=== PATIENT | female | born 1950 | race Caucasian/White ===

== ENCOUNTER 2020-09-19 10:10 | Outpatient (CLI) | payer OTHER, SELFPAY ==
[2020-09-19 10:54] VITALS: BP 126/78; PULSE 62; RESP 18; TEMP 36.6; O2SAT 100
--- NOTE | 2020-09-19 11:43 | DI.RAD_ITS ---
EXAM: XR PAIN CLINIC LUMBAR SP 2V CLINICAL HISTORY: Dx:Lumbar Spondylosis TECHNIQUE: 2D and realtime digital imaging was performed. CONTRAST MATERIAL: Refer to procedure report. COMPARISON: No exams were available for comparison FINDINGS: Fluoroscopy was provided for Dr. Gee during the performance of a lumbar medial branch block. Boyd barrett refer to the procedure report for complete details. Fluoro time: 56.9 seconds IMPRESSION:
[2020-09-19 11:47] VITALS: BP 147/70; PULSE 74; RESP 12; O2SAT 100
[2020-09-19] MEDS: Omnipaque 240 MG/ML 50 ML BTL IJ (11:47)
[2020-09-19] MEDS: Bupivacaine 0.5% Pres-Free 10 ML VIAL IJ (11:48)
--- NOTE | 2020-09-19 13:55 | PDOC.PAIN ---
Pain Clinic Procedure Note Procedure Note Procedure Note: Date of service: 09/19/20 Lumbar/Sacral Medial Branch Blocks JESSICA GUALLPA has been referred to the [facility] for lumbar/sacral medial branch blocks. COMMENTS: She was evaluated in our pain management clinic on 08/16/20 by Ms. De La Cruz. DX: Lumbosacral spondylosis without myelopathy Patient was interviewed and the medical record reviewed. There were no medical, pharmacologic, radiographic or other structural contraindications to attempting fluoroscopically guided local anesthetic lumbar/sacral medial branch blocks. Risks and expected side effects as well as potential benefit of the procedure were reviewed and voiced concerns addressed. The printed consent form was signed and witnessed. Standard time-out procedure was performed. Patient was placed in the prone position on the fluoroscopy table and automated blood pressure cuff and pulse oximeter applied. The skin entry points for approaching the anatomic target points of the segmental medial branches of bilateral L3-L5DR were identified with anfluoroscopy and marked. Following thorough Chlorhexadine preparation of the skin and draping, a 25 gauge 3.5 spinal needle was placed under fluoroscopic guidance down on to the target point for each respective segmental medial branch.Position was confirmed in A/P, oblique and lateral views with 0.25ml of omnipaque 240. At this point 0.5ml 0.5% Bupivacaine was injected at each segmental sensory nerve. Vital signs were stable throughout the procedure and were as recorded in the docflowsheet by the nursing staff. Follow up plans and appointments were discussed and was instructed to keep careful note of how the usual pain was modified by these injections. Specifically was asked to keep a pain diary for the next 24 hours using a numeric pain scale of 0-10 and report these results at the follow-up visit. Post procedure instruction was given as documented in the nursing documentation and having met discharge criteria. Patient was discharged from the [facility] Management [facility]. Based on the medial branches blocked today, if the patient has adequate relief and we are able to proceed to radiofrequency ablation, the treatment should result in the denervation of the bilateral L4-L5 and L5-S1 FACET JOINTS. We would expect to denervate a total of 4 facets during the radiofrequency ablation. COMMENTS: She will call back with her 1-4 hour post-procedure pain scores Ernie Gee DO, MPH Pain Management CC: Dario Brower
== END 2020-09-19 10:30 ==
PROVIDERS: PCP Family Medicine; Visit Provider Preventive Medicine Occupational Medicine
DX: M47.817 Spondylosis without myelopathy or radiculopathy, lumbosacral region (principal)
CPT/HCPCS: 64493; 64494; 72100; Q9967

== ENCOUNTER 2020-10-04 08:33 | Outpatient (CLI) | payer OTHER, SELFPAY ==
--- NOTE | 2020-10-04 06:00 | DI.RAD_ITS ---
EXAM: XR PAIN CLINIC LUMBAR SP 2V CLINICAL HISTORY: Dx: Lumbar Spondylosis TECHNIQUE: 2D and realtime digital imaging was performed. CONTRAST MATERIAL: Refer to procedure report. COMPARISON: No exams were available for comparison FINDINGS: Fluoroscopy was provided for Dr. Gee during the performance of a lumbar medial branch block. Boyd barrett refer to the procedure report for complete details. Fluoro time: 56.8 seconds IMPRESSION:
[2020-10-04 08:42] VITALS: BP 148/79; PULSE 70; RESP 18; TEMP 37.1; O2SAT 100
--- NOTE | 2020-10-04 09:49 | PDOC.PAIN ---
Pain Clinic Procedure Note Procedure Note Procedure Note: Date of service: 10/04/20 Lumbar/Sacral Medial Branch Blocks JESSICA GUALLPA has been referred to the [facility] for lumbar/sacral medial branch blocks. COMMENTS: She did very well with her first LMBB with 0.5% Bupivacaine on 09/19/20 DX: Lumbosacral spondylosis without myelopathy Patient was interviewed and the medical record reviewed. There were no medical, pharmacologic, radiographic or other structural contraindications to attempting fluoroscopically guided local anesthetic lumbar/sacral medial branch blocks. Risks and expected side effects as well as potential benefit of the procedure were reviewed and voiced concerns addressed. The printed consent form was signed and witnessed. Standard time-out procedure was performed. Patient was placed in the prone position on the fluoroscopy table and automated blood pressure cuff and pulse oximeter applied. The skin entry points for approaching the anatomic target points of the segmental medial branches of bilateral L3-L5DR were identified with anfluoroscopy and marked. Following thorough Chlorhexadine preparation of the skin and draping, a 25 gauge 3.5 spinal needle was placed under fluoroscopic guidance down on to the target point for each respective segmental medial branch.Position was confirmed in A/P, oblique and lateral views with 0.25ml of omnipaque 240. As this point 0.5cc of 2% Lidocaine was injected at each sensory nerve. Vital signs were stable throughout the procedure and were as recorded in the docflowsheet by the nursing staff. Follow up plans and appointments were discussed and was instructed to keep careful note of how the usual pain was modified by these injections. Specifically was asked to keep a pain diary for the next 24 hours using a numeric pain scale of 0-10 and report these results at the follow-up visit. Post procedure instruction was given as documented in the nursing documentation and having met discharge criteria. Patient was discharged from the [facility] Management [facility]. Based on the medial branches blocked today, if the patient has adequate relief and we are able to proceed to radiofrequency ablation, the treatment should result in the denervation of the bilateral L4-L5 and L5-S1 FACET JOINTS. We would expect to denervate a total of 4 facets during the radiofrequency ablation. COMMENTS: She will call back with her 1-4 hour post-procedure pain scores. Ernie Gee DO, MPH Pain Management CC: Dario Brower
[2020-10-04] MEDS: Omnipaque 240 MG/ML 50 ML BTL IJ (09:50)
[2020-10-04] MEDS: Lidocaine 2% Pres-Free 5 ML VIAL IJ (09:50)
[2020-10-04 09:51] VITALS: BP 131/79; PULSE 72; RESP 14; O2SAT 97
== END 2020-10-04 08:34 | disposition home or self-care (01) ==
LOC: PC 08:34
PROVIDERS: PCP Family Medicine; Visit Provider Preventive Medicine Occupational Medicine
DX: M47.817 Spondylosis without myelopathy or radiculopathy, lumbosacral region (principal)
CPT/HCPCS: 64493; 64494; 72100; Q9967

== ENCOUNTER 2020-12-25 12:42 | Outpatient (CLI) | payer OTHER, SELFPAY ==
[2020-12-25 12:52] VITALS: BP 127/72; PULSE 67; RESP 16; TEMP 36.7
[2020-12-25] MEDS: Lactated Ringers 1,000 ML 80 ML IV (13:28)
[2020-12-25] MEDS: Midazolam 2 MG/2 ML VIAL IVP ×2 (13:28→13:45)
[2020-12-25] MEDS: fentaNYL 100 MCG/2 ML VIAL IVP ×3 (13:28→14:08)
[2020-12-25 14:27] VITALS: BP 150/74; PULSE 72; RESP 17; O2SAT 99
[2020-12-25] MEDS: Lidocaine 1% Pres-Free 30 ML VIAL IJ (14:27)
--- NOTE | 2020-12-25 14:30 | DI.RAD_ITS ---
EXAM: XR PAIN CLINIC LUMBAR SP 2V CLINICAL HISTORY: Dx: Lumbar Spondylosis TECHNIQUE: 2D and realtime digital imaging was performed. CONTRAST MATERIAL: Refer to procedure report. COMPARISON: No exams were available for comparison FINDINGS: Fluoroscopy was provided for Dr. Bolton during the performance of a lumbar radiofrequency ablation. Ple ase refer to the procedure report for complete details. Ka,r=26.24 mGy IMPRESSION:
[2020-12-25] MEDS: Lidocaine 2% Pres-Free 5 ML VIAL IJ (14:33)
[2020-12-25] MEDS: Bupivacaine 0.5% Pres-Free 10 ML VIAL IJ (14:33)
[2020-12-25] MEDS: methylPREDNISolone ACETATE 40 MG/ML VIAL IJ (14:34)
--- NOTE | 2020-12-25 14:53 | PDOC.PAIN ---
Pain Clinic Procedure Note Procedure Note Procedure Note: Bilateral Lumbar Radiofrequency with Coolief Machine PROCEDURE NOTE Date of Service: December 25, 2020 Patient: JESSICA GUALLPA Provider: Anselmo Bolton MD Pre Operative Diagnosis: lumbar spondylosis Post Operative Diagnosis: same as above Comment: patient responded well to previous bilateral lumbar medial branch nerv blocks. PROCEDURE: Radiofrequency Ablation of medial branches - bilateral L3, L4, L5-DR JESSICA GUALLPA was brought into the fluoroscopy suite and positioned into the prone position on the fluoroscopy table and allowed to adjust to a position of comfort. A grounding pad was placed on the left thigh. The lumbar region was widely prepped with a chloraprep solution, allowed to air dry and draped in standard sterile surgical fashion. Local anesthesia was provided by 20mL of 1% lidocaine delivered with a 25g needle. A 17g 100mm radiofrequency introducer needle was placed to the planned anatomic targets guided with intermittent fluoroscopy with a perpendicular approach to terminally place at the junction of the superior articular process and the transverse process of the bilateral L3, L4, L5-DR and the base of the sacral ala on the bilateral for the L5 medial branch nerve. S1 also added for additional benefits. The stylets were removed and radiofrequency probes with a 4mm active tip were then inserted. Needle tip position of the probes was verified in the AP, oblique, and lateral views. At each site, the medial branch nerve was stimulated at 2 Hz to a maximum 1-2 volts determined to finalize safe needle and electrode placement. The patient was awake and responsive during this portion of the procedure. Each target was anesthetized with 1mL of 2% lidocaine for anesthesia for lesioning and then each target was lesioned at 80 degrees Celsius for 2 minutes and 30 seconds. Tissue impedences were noted to be between 250 and 500 Ohms. Electrodes and needles were then removed and bandages placed over the needle placement sites, the patient then returned to the supine position on a stretcher and transported to the recovery room without hemodynamic, neurologic, or allergic reactions. Fluoroscopic images were printed for hard copy recording and digitally archived. POST PROCEDURE EVALUATION: IMPRESSION: 1. patient tolerated procedure fairly well on the right side, she reported discomfort with lesioning of the left side, no radiation down lower extremity 2. required 1.5mg of IV versed and 75mcg of IV Fentanyl for IV anxiolysis Follow up plans and appointments were discussed with the JESSICA . Post procedure instruction was given as documented in nursing documentation and having met discharge criteria, JESSICA was discharged from the Pain Management [facility]. COMMENTS: No complications. F/U with our office as needed. I personally performed this entire procedure. Her pre-procedure VAS pain level is 5/10 and post-procedure pain level remained at 5/10. Anselmo Bolton MD Attending Physician
== END 2020-12-25 12:43 | disposition home or self-care (01) ==
LOC: PC 12:42
PROVIDERS: PCP Family Medicine; Visit Provider Internal Medicine
DX: M47.816 Spondylosis without myelopathy or radiculopathy, lumbar region (principal)
CPT/HCPCS: 64635; 64636; 72100; J1030; J2250; J3010

== ENCOUNTER 2021-04-18 08:27 | Outpatient (CLI) | payer OTHER, SELFPAY ==
--- NOTE | 2021-04-18 06:00 | DI.RAD_ITS ---
Exam(s) XR PAIN CLINIC SACRIOILIAC 2V EXAM: XR PAIN CLINIC SACRIOILIAC 2V CLINICAL HISTORY: Dx: Sacroiliac Joint Dysfunction TECHNIQUE: 2D and realtime digital imaging was performed. Radiologist not present. CONTRAST MATERIAL: None. COMPARISON: No exams were available for comparison FINDINGS: Fluoroscopy was provided for pain management therapy. Please refer to procedure report or details. Left sacroiliac joint injection. Cumulative dose: Ka,r=7.57 mGy IMPRESSION: RADIATION DOSE DELIVERED:
[2021-04-18 08:40] VITALS: BP 119/70; PULSE 69; RESP 18; TEMP 36.7; O2SAT 99
--- NOTE | 2021-04-18 09:25 | PDOC.PAIN_ITS ---
Pain Clinic Procedure Note Procedure Note Procedure Note: INTRA-ARTICULAR SI JOINT INJECTION JESSICA GUALLPA has been referred to the [facility] for intra- articular SI joint injection. COMMENTS: Pre-operative pain VAS was 8/10. Dx: Sacroiliac joint dysfunction Patient was interviewed and the medical record reviewed. There were no medical, pharmacologic, radiographic or other structural contraindications to attempting fluoroscopically guided intra-articular SI joint injection. Risks and expected side effects as well as potential benefit of the procedure were reviewed and voiced concerns addressed. The printed consent form was signed and witnessed. Standard time-out procedure was performed. Patient was placed in the prone position on the fluoroscopy table and automated blood pressure cuff and pulse oximeter applied. The skin entry point for approaching left SI joint was identified under the most advantageous fluoroscopic view and marked. Following thorough Chlorhexadine preparation of the skin and draping and 1% lidocaine infiltration of the skin entry point and subcutaneous tissues, a 22 gauge spinal needle was placed under fluoroscopic guidance into left SI joint was identified under the most advantageous fluoroscopic view and marked. Intra-articular placement was confirmed by a clear arthrogram resulting from the injection of 0.25ml Omnipaque 240, 1ml 1% lidocaine, and 80mg Depomedrol were injected intra-articularily with an initial reproduction of a significant component of the usual pain. Vital signs were stable throughout the procedure and were as recorded in the docflowsheet by the nursing staff. If given, dosages of intravenous drugs for anxiolysis and analgesia were documented in MAR. Follow up plans and appointments were discussed with the patient. Post procedure instruction was given as documented in nursing documentation and having met discharge criteria, and was discharged from the [facility] Management Center. COMMENTS: Post-procedure pain VAS = 7/10 Ernie Gee DO, MPH Pain Management CC: Slim Israel
[2021-04-18 09:42] VITALS: BP 131/84; PULSE 71; RESP 18; O2SAT 99
[2021-04-18] MEDS: Omnipaque 240 MG/ML 50 ML BTL IJ (09:44)
[2021-04-18] MEDS: methylPREDNISolone ACETATE 80 MG/ML VIAL IJ (09:44)
== END 2021-04-18 08:28 | disposition home or self-care (01) ==
LOC: PC 08:27
PROVIDERS: PCP Internal Medicine; Visit Provider Preventive Medicine Occupational Medicine
DX: M53.3 Sacrococcygeal disorders, not elsewhere classified (principal)
CPT/HCPCS: 27096; 72200; J1040; Q9967

== ENCOUNTER 2021-06-06 02:34 | Outpatient (CLI) | payer MEDICARE, SELFPAY ==
--- NOTE | 2021-06-06 | DI.US_ITS ---
Exam(s) US PAIN CLINIC NEEDLE GUIDANCE EXAM: cervical myofascial pain syndrome, ultrasound guided trigger point jection COMPARISON: No exams were available for comparison TECHNIQUE: Ultrasound performed using standard protocol. FINDINGS: Sonography was provided for Dr. Gee during the performance of a ultrasound-guided trigger point inj ection. Please refer to the procedure report for complete details. DATA REPOSITORY:
--- NOTE | 2021-06-06 06:00 | DI.RAD_ITS ---
Exam(s) XR PAIN CLINIC SACRIOILIAC 2V EXAM: XR PAIN CLINIC SACRIOILIAC 2V CLINICAL HISTORY: Dx: Sacroiliac joint dysfunction TECHNIQUE: 2D and realtime digital imaging was performed. CONTRAST MATERIAL: Refer to procedure report. COMPARISON: No exams were available for comparison FINDINGS: Fluoroscopy was provided for Dr. Gee during the performance of a sacroiliac joint injection. Boyd barrett refer to the procedure report for complete details. Ka,r=6.84 mGy IMPRESSION:
[2021-06-06 08:47] VITALS: BP 121/78; PULSE 66; RESP 18; O2SAT 99
[2021-06-06 09:33] VITALS: PULSE 73; O2SAT 100
[2021-06-06] MEDS: Lidocaine 2% Pres-Free 5 ML VIAL IJ (09:47)
[2021-06-06] MEDS: Omnipaque 240 MG/ML 50 ML BTL IJ (09:47)
[2021-06-06] MEDS: methylPREDNISolone ACETATE 40 MG/ML VIAL IJ (09:48)
--- NOTE | 2021-06-06 09:50 | PDOC.PAIN_ITS ---
Pain Clinic Procedure Note Procedure Note Procedure Note: INTRA-ARTICULAR SI JOINT INJECTION JESSICA GUALLPA has been referred to the [facility] for intra- articular SI joint injection. COMMENTS: Pre-procedure pain VAS was 8/10. Dx: Sacroiliac joint dysfunction Patient was interviewed and the medical record reviewed. There were no medical, pharmacologic, radiographic or other structural contraindications to attempting fluoroscopically guided intra-articular SI joint injection. Risks and expected side effects as well as potential benefit of the procedure were reviewed and voiced concerns addressed. The printed consent form was signed and witnessed. Standard time-out procedure was performed. Patient was placed in the prone position on the fluoroscopy table and automated blood pressure cuff and pulse oximeter applied. The skin entry point for approaching left SI joint was identified under the most advantageous fluoroscopic view and marked. Following thorough Chlorhexadine preparation of the skin and draping and 1% lidocaine infiltration of the skin entry point and subcutaneous tissues, a 22 gauge 3.5 spinal needle was placed under fluoroscopic guidance into left SI joint was identified under the most advantageous fluoroscopic view and marked. Intra-articular placement was confirmed by a clear arthrogram resulting from the injection of 0.25ml Omnipaque 240, 1ml 1% lidocaine, and 40mg Depomedrol were injected intra-articularily with an initial reproduction of a significant component of the usual pain. Vital signs were stable throughout the procedure and were as recorded in the docflowsheet by the nursing staff. If given, dosages of intravenous drugs for anxiolysis and analgesia were documented in MAR. Follow up plans and appointments were discussed with the patient. Post procedure instruction was given as documented in nursing documentation and having met discharge criteria, and was discharged from the [facility] Management Center. COMMENTS: Post-procedure pain VAS was 5/10. Ernie Gee DO, MPH Pain Management CC: Slim Israel
--- NOTE | 2021-06-06 09:53 | PDOC.PAIN_ITS ---
Pain Clinic Procedure Note Procedure Note Procedure Note: ULTRASOUND GUIDED LEFT trapezius, levator scapulae, and cervical paraspinous muscle trigger point INJECTIONS Pre-Procedural Evaluation: JESSICA GUALLPA has been referred to the Pain Management Center for an Ultrasound Guided left trapezius, levator scapulae, and cervical paraspinous trigger point injections for a chief complaint of upper back/lower neck pain. Pre-procedure Pain Score: 8/10 DX: Muscle pain Patient was interviewed and the medical record reviewed. There were no medical, pharmacologic, radiographic, or other structural contraindications to preforming an ultrasound guided injection. Risks and expected side effects as well as potential benefits of the procedure were reviewed. The patient consent form was signed and witnessed. Standard time-out procedure was performed. The use of direct ultrasound visualization of the needle (rather than a non- guided injection) was required to increase patient safety by excluding inadvertent intramuscular, intratendinous, or intraneural needle placement and minimizing bleeding by avoiding osteochondral or vascular injury from the needle. Additionally, the increased accuracy of placement may increase clinical effectiveness and will allow higher diagnostic specificity when evaluating effectiveness of this injection. Procedure Description: The patient was placed in the prone position and automated blood pressure cuff and pulse oximeter applied for monitoring during the procedure and recorded in the medical record. Pre-injection ultrasound scanning of the area of interest was performed using a linear transducer, identifying relevant anatomy, landmarks, and neurovascular structures allowing for optimal needle path. The site was then prepared in the usual sterile fashion, using thorough Chlorhexadine preparation of the skin and sterile draping. The same ultrasound transducer was then passed into the sterile field using sterile probe cover and sterile ultrasound gel. The injection target was again visualized. Skin and subcutaneous tissues were anesthetized with 2 mL of 2% Lidocaine. A 21 guage P[place]unk ultrasound needle was placed under live ultrasound guidance, using an in-plane approach, to the target area. After visualization of the needle tip at the target area, a mixture of 2 mL 2% Lidocaine and 1 cc of Depomedrol (40 mg/cc), totaling 3 mL of injectate was delivered after negative aspiration for blood. Ultrasound images were captured and stored for documentation purposes. Post-procedure Pain Score:5/10 Vital signs were stable throughout the procedure and were as recorded in the docflowsheet by the nursing staff. Follow up plans and appointments were discussed with the patient.Post procedure instruction was given as documented in nursing documentation and having met discharge criteria, they were discharged from the Pain Management Center. COMMENTS: She did very well with this procedure Ernie Gee DO, MPH Pain Management
[2021-06-06 09:55] VITALS: BP 144/76; PULSE 73; RESP 15; O2SAT 100
== END 2021-06-06 02:35 | disposition home or self-care (01) ==
PROVIDERS: PCP Internal Medicine; Visit Provider Preventive Medicine Occupational Medicine
DX: M79.18 Myalgia, other site (principal); M53.3 Sacrococcygeal disorders, not elsewhere classified
CPT/HCPCS: 20553; 27096; 72200; 76942; J1030; Q9967

== ENCOUNTER → 2021-10-23 00:28 | Outpatient (CLI) | payer OTHER, SELFPAY ==
--- NOTE | 2021-10-23 | DI.MRI_ITS ---
Exam(s) MR UPPER JOINT RT WO EXAM: MR UPPER JOINT RT WO CLINICAL HISTORY: RT SHOULDER PAIN, M25.511. TECHNIQUE: Multiplanar multisequence MRI was performed. COMPARISON: Plain films from [facility] 20 August 2021 FINDINGS: The exam is mildly limited by patient motion. There is some spurring at the AC joint. This may cause mild impingement. There are metallic artifac t presumably related to previous surgery. There is a small glenohumeral joint effusion and a small a mount of fluid in the subacromial subdeltoid bursa. The coronal T2 images are suboptimal however the re is thinning of the anterior, distal supraspinatus tendon consistent with a partial tear. There is no significant muscle atrophy. The infraspinatus, subscapularis, biceps and teres minor tendons renetta ear intact. No gross labral tear is seen. IMPRESSION: Partial-thickness tear of the anterior supraspinatus tendon. Small joint effusions. Degenerative ch anges at the AC joint with question postsurgical artifacts. DATA REPOSITORY:
== END ==
PROVIDERS: PCP Internal Medicine; Visit Provider Internal Medicine
DX: M25.511 Pain in right shoulder (principal); M25.411 Effusion, right shoulder; M19.011 Primary osteoarthritis, right shoulder; S46.011A Strain of muscle(s) and tendon(s) of the rotator cuff of right shoulder, initial encounter; X58.XXXA Exposure to other specified factors, initial encounter
CPT/HCPCS: 73221

== ENCOUNTER → 2021-12-18 01:30 | Outpatient (CLI) | payer OTHER, SELFPAY ==
--- NOTE | 2021-12-18 06:00 | DI.RAD_ITS ---
Exam(s) XR PAIN CLINIC SACRIOILIAC 2V EXAM: XR PAIN CLINIC SACRIOILIAC 2V CLINICAL HISTORY: Dx: Sacroiliac joint dysfunction TECHNIQUE: 2D and realtime digital imaging was performed. COMPARISON: No exams were available for comparison FINDINGS: C-arm fluoroscopy was utilized by Dr. Gee during left SI joint injection. Hard copy confirms left S I joint injection. IMPRESSION: RADIATION DOSE DELIVERED: Violetr= 5.41 mGy
[2021-12-18 11:28] VITALS: BP 123/83; PULSE 77; RESP 14; TEMP 37; O2SAT 98
--- NOTE | 2021-12-18 11:30 | DI.US_ITS ---
Exam(s) US PAIN CLINIC NEEDLE GUIDANCE EXAM: US PAIN CLINIC NEEDLE GUIDANCE CLINICAL HISTORY: LUMBAR SPONDYLOSIS WO MYELOPATHY OR RADICULOPATHY, LT SI JT DYSFUNCTION TECHNIQUE: Ultrasound performed using standard protocol. COMPARISON: US US PAIN CLINIC NEEDLE GUIDANCE from 06/06/2021 FINDINGS: Ultrasound guidance was provided for injection performed by Dr. Gee. Please see Dr. Gee's procedur e note. IMPRESSION: DATA REPOSITORY:
--- NOTE | 2021-12-18 12:06 | PDOC.PAIN ---
Pain Clinic Procedure Note Procedure Note Procedure Note: INTRA-ARTICULAR SI JOINT INJECTION Procedure Note #1 of 2 for the day Nery Plunkett has been referred to the Pain Management Center for intra-articular SI joint injection. COMMENTS: I previously evaluated her in the office. Pre-procedure pain VAS was 5/10. DX: Sacroiliac joint dysfunction Patient was interviewed and the medical record reviewed. There were no medical, pharmacologic, radiographic or other structural contraindications to attempting fluoroscopically guided intra-articular SI joint injection. Risks and expected side effects as well as potential benefit of the procedure were reviewed and voiced concerns addressed. The printed consent form was signed and witnessed. Standard time-out procedure was performed. Patient was placed in the prone position on the fluoroscopy table and automated blood pressure cuff and pulse oximeter applied. The skin entry point for approaching the left SI joint was identified under the most advantageous fluoroscopic view and marked. Following thorough Chlorhexadine preparation of the skin and draping and 1% lidocaine infiltration of the skin entry point and subcutaneous tissues, a 22 gauge 3.5 spinal needle was placed under fluoroscopic guidance into left SI joint was identified under the most advantageous fluoroscopic view and marked. Intra-articular placement was confirmed by a clear arthrogram resulting from the injection of 0.25ml Omnipaque 240, 1ml 1% lidocaine, and 40mg Depomedrol were injected intra-articularily with an initial reproduction of a significant component of the usual pain. Vital signs were stable throughout the procedure and were as recorded in the docflowsheet by the nursing staff. If given, dosages of intravenous drugs for anxiolysis and analgesia were documented in MAR. Follow up plans and appointments were discussed with the patient. Post procedure instruction was given as documented in nursing documentation and having met discharge criteria, and was discharged from the Pain Management Center. COMMENTS: Post-procedure pain VAS was 4/10. Ernie Gee DO, MPH [facility] CC: Slim Israel
--- NOTE | 2021-12-18 12:10 | PDOC.PAIN_ITS ---
Pain Clinic Procedure Note Procedure Note Procedure Note: ULTRASOUND GUIDED LEFT TRIGGER POINT INJECTIONS Pre-Procedural Evaluation: Nery Plunkett has been referred to the [facility] for an Ultrasound Guided left thoracic paraspinal and left rhomboid muscle trigger point injection for a chief complaint of left mid-back pain. Pre-procedure Pain Score: 7/10 Patient was interviewed and the medical record reviewed. There were no medical, pharmacologic, radiographic, or other structural contraindications to preforming an ultrasound guided injection. Risks and expected side effects as well as potential benefits of the procedure were reviewed. The patient consent form was signed and witnessed. Standard time-out procedure was performed. The use of direct ultrasound visualization of the needle (rather than a non- guided injection) was required to increase patient safety by excluding inadvertent intramuscular, intratendinous, or intraneural needle placement and minimizing bleeding by avoiding osteochondral or vascular injury from the needle. Additionally, the increased accuracy of placement may increase clinical effectiveness and will allow higher diagnostic specificity when evaluating effectiveness of this injection. Procedure Description: The patient was placed in the prone position and automated blood pressure cuff and pulse oximeter applied for monitoring during the procedure and recorded in the medical record. Pre-injection ultrasound scanning of the area of interest was performed using linear transducer, identifying relevant anatomy, landmarks, and neurovascular structures allowing for optimal needle path. The site was then prepared in the usual sterile fashion, using thorough Chlorhexadine preparation of the skin and sterile draping. The same ultrasound transducer was then passed into the sterile field using sterile probe cover and sterile ultrasound gel. The injection target was again visualized. Skin and subcutaneous tissues were anesthetized with 2 mL of 1% Lidocaine. A 21 gauge 3.5 Pajunk ultrasound needle was placed under live ultrasound guidance, using an in-plane approach, to the target area. After visualization of the needle tip at the target area, 4 cc of 2% Lidocaine was delivered after negative aspiration for blood. Ultrasound images were captured and stored for documentation purposes. Post-procedure Pain Score:5/10 Vital signs were stable throughout the procedure and were as recorded in the docflowsheet by the nursing staff. Follow up plans and appointments were discussed with the patient.Post procedure instruction was given as documented in nursing documentation and having met discharge criteria, they were discharged from the [facility] Management [facility]. COMMENTS: She knows how to stretch the area Ernie Gee DO, MPH [facility]-Pain Management [facility]
[2021-12-18 12:18] VITALS: BP 145/90; PULSE 84; RESP 19; O2SAT 99
[2021-12-18] MEDS: methylPREDNISolone ACETATE 40 MG/ML VIAL IJ (12:18)
[2021-12-18] MEDS: Lidocaine 2% Pres-Free 5 ML VIAL IJ (12:18)
[2021-12-18] MEDS: Omnipaque 240 MG/ML 50 ML BTL IJ (12:18)
== END ==
PROVIDERS: PCP Internal Medicine; Visit Provider Preventive Medicine Occupational Medicine
DX: M79.18 Myalgia, other site (principal); M53.3 Sacrococcygeal disorders, not elsewhere classified
CPT/HCPCS: 20553; 27096; 72200; 76942; J1030; Q9967

== ENCOUNTER 2022-01-22 07:25 | Outpatient (CLI) | payer OTHER, SELFPAY ==
[2022-01-22 07:57] VITALS: BP 119/81; PULSE 69; RESP 20; TEMP 36.7; O2SAT 98
[2022-01-22] MEDS: fentaNYL 100 MCG/2 ML VIAL IVP ×2 (08:42→08:46)
[2022-01-22] MEDS: Midazolam 2 MG/2 ML VIAL IVP (08:43)
[2022-01-22 09:22] VITALS: BP 137/81; PULSE 70; RESP 16; O2SAT 98
--- NOTE | 2022-01-22 09:30 | DI.RAD_ITS ---
Exam(s) XR PAIN CLINIC LUMBAR SP 2V EXAM: XR PAIN CLINIC LUMBAR SP 2V CLINICAL HISTORY: DX: Lumbar Spondylosis TECHNIQUE: 2D and realtime digital imaging was performed. CONTRAST MATERIAL: Refer to procedure report. COMPARISON: No exams were available for comparison FINDINGS: Fluoroscopy was provided for Dr. Gee during the performance of a bilateral lumbar radiofrequency ab lation. Please refer to the procedure report for complete details. Ka,r=21.25 mGy IMPRESSION:
--- NOTE | 2022-01-22 09:35 | PDOC.PAIN ---
Pain Clinic Procedure Note Procedure Note Procedure Note: [Right/Left/Bilateral] Lumbar Radiofrequency with Coolief Machine PROCEDURE NOTE Date of Service: January 22, 2022 Patient: Nery Plunkett Provider: Ernie Gee DO, MPH Pre Operative Diagnosis: Lumbosacral Spondylosis without Myelopathy Post Operative Diagnosis: Same Pre-procedure pain; VAS= 8/10 PROCEDURE: Radiofrequency Ablation of medial branches - Bilateral L3 L4 L5 and lateral branches of bilateral S1. Nery Plunkett was brought into the fluoroscopy suite and positioned into the prone position on the fluoroscopy table and allowed to adjust to a position of comfort. A grounding pad was placed on the right thigh. The lumbar region was widely prepped with a chloraprep solution, allowed to air dry and draped in standard sterile surgical fashion. Local anesthesia was provided by 5 mL of 2% Lidocaine delivered with a 25g needle. A 17g 100 mm radiofrequency introducer needle was placed to the planned anatomic targets guided with intermittent fluoroscopy with a perpendicular approach to terminally place at the junction of the superior articular process and the transverse process of the bilateral L4 L5, the base of the sacral ala on the bilateral for the L5 medial branch nerve and the area between base of the sacral ala to the S1 foramen bilaterally. The stylets were removed and radiofrequency probes with a 4mm active tip were then inserted. Needle tip position of the probes was verified in the AP, oblique, and lateral views. At each site, the medial branch nerve was stimulated at 2 Hz to a maximum 1-2 volts determined to finalize safe needle and electrode placement. The patient was awake and responsive during this portion of the procedure. Each target was anesthetized with 1-2 mL of 2% Lidocaine for anesthesia for lesioning and then each target was lesioned at 80 degrees Celsius for 2 minutes and 30 seconds. Tissue impedences were noted to be between 250 and 500 Ohms. I then injected 1/4 cc of Depomedrol (40mg/cc) followed by 1 cc of 0.5% Bupivacaine to each segmental sensory nerve. Electrodes and needles were then removed and bandages placed over the needle placement sites, the patient then returned to the supine position on a stretcher and transported to the recovery room without hemodynamic, neurologic, or allergic reactions. Fluoroscopic images were printed for hard copy recording and digitally archived. POST PROCEDURE EVALUATION: IMPRESSION: 1. Summary of procedure. Medication given is documented in the MAR. 2. The patient will be contacted in 1-3 weeks 3. Estimated Blood Loss: <5 mls 4. Fluoroscopy time: Documented in the EMR. Follow up plans and appointments were discussed with the Nery . Post procedure instruction was given as documented in nursing documentation and having met discharge criteria, Nery was discharged from the Pain Management Center. COMMENTS: No apparent complications. Post-procedure pain: VAS= 5/10. F/U with our office as needed. I personally performed this entire procedure. Ernie Gee DO, MPH Attending Physician Pain Management
[2022-01-22] MEDS: Lactated Ringers 1,000 ML 80 ML IV (09:37)
[2022-01-22] MEDS: Lidocaine 2% Multi-Dose 20 ML VIAL IJ (09:40)
[2022-01-22] MEDS: Bupivacaine 0.5% Pres-Free 10 ML VIAL IJ (09:40)
[2022-01-22] MEDS: methylPREDNISolone ACETATE 40 MG/ML VIAL IJ (09:40)
== END 2022-01-22 07:26 | disposition home or self-care (01) ==
LOC: PC 07:26
PROVIDERS: PCP Internal Medicine; Visit Provider Preventive Medicine Occupational Medicine
DX: M47.817 Spondylosis without myelopathy or radiculopathy, lumbosacral region (principal); M54.50 Low back pain, unspecified
CPT/HCPCS: 64636; 64635; 72100; J1030; J2250; J3010; J3490

== ENCOUNTER 2022-04-16 11:28 | Outpatient (CLI) | payer OTHER, SELFPAY ==
--- NOTE | 2022-04-16 06:00 | DI.RAD_ITS ---
Exam(s) XR PAIN CLINIC SACRIOILIAC 2V EXAM: XR PAIN CLINIC SACRIOILIAC 2V CLINICAL HISTORY: DX: Sacroiliac joint dysfuntion. TECHNIQUE: 2D and realtime digital imaging was performed. COMPARISON: No exams were available for comparison FINDINGS: C-arm fluoroscopy was utilized by Dr. Gee during reported left SI joint injection. Hard copy shows needle placement and injection at the inferior aspect of left SI joint. IMPRESSION: RADIATION DOSE DELIVERED: adela Lazo= 3.71 mGy
[2022-04-16 12:08] VITALS: BP 134/85; PULSE 79; RESP 18; TEMP 36.9; O2SAT 97
[2022-04-16] MEDS: Omnipaque 240 MG/ML 50 ML BTL IJ (12:36)
[2022-04-16] MEDS: methylPREDNISolone ACETATE 80 MG/ML VIAL IJ (12:37)
[2022-04-16 12:38] VITALS: BP 141/89; PULSE 75; RESP 16; O2SAT 99
--- NOTE | 2022-04-16 14:06 | PDOC.PAIN ---
Pain Clinic Procedure Note Procedure Note Procedure Note: INTRA-ARTICULAR SI JOINT INJECTION Nery Plunkett has been referred to the [facility] Management Center for intra-articular SI joint injection. COMMENTS: She was previously evaluated in our clinic. Pre-procedure pain VAS was 5/10. Dx: Sacroiliac joint dysfunction Patient was interviewed and the medical record reviewed. There were no medical, pharmacologic, radiographic or other structural contraindications to attempting fluoroscopically guided intra-articular SI joint injection. Risks and expected side effects as well as potential benefit of the procedure were reviewed and voiced concerns addressed. The printed consent form was signed and witnessed. Standard time-out procedure was performed. Patient was placed in the prone position on the fluoroscopy table and automated blood pressure cuff and pulse oximeter applied. The skin entry point for approaching the left SI joint was identified under the most advantageous fluoroscopic view and marked. Following thorough Chlorhexadine preparation of the skin and draping and 1% lidocaine infiltration of the skin entry point and subcutaneous tissues, a 22 gauge spinal needle was placed under fluoroscopic guidance into the left SI joint was identified under the most advantageous fluoroscopic view and marked. Intra-articular placement was confirmed by a clear arthrogram resulting from the injection of 0.25ml Omnipaque 240, 1ml 1% lidocaine, and 80mg Depomedrol were injected intra-articularily with an initial reproduction of a significant component of the usual pain. 1 cc of 1% Lidocaine was used to flush the needle. The needle was then removed. Vital signs were stable throughout the procedure and were as recorded in the docflowsheet by the nursing staff. If given, dosages of intravenous drugs for anxiolysis and analgesia were documented in MAR. Follow up plans and appointments were discussed with the patient. Post procedure instruction was given as documented in nursing documentation and having met discharge criteria, and was discharged from the Pain Management Center. COMMENTS: Post-procedure pain VAS was 0/10 Ernie Gee DO, MPH [facility]-Pain Management [facility] for [facility] CC: Slim Israel
== END 2022-04-16 11:29 | disposition home or self-care (01) ==
LOC: PC 11:28
PROVIDERS: PCP Internal Medicine; Visit Provider Preventive Medicine Occupational Medicine
DX: M53.3 Sacrococcygeal disorders, not elsewhere classified (principal)
CPT/HCPCS: 27096; 72200; J1040; Q9967

== ENCOUNTER 2022-12-18 10:53 | Outpatient (CLI) | payer OTHER, SELFPAY ==
[2022-12-18 11:03] VITALS: BP 145/85; PULSE 71; RESP 20; TEMP 36.6; O2SAT 98
--- NOTE | 2022-12-18 12:24 | DI.RAD_ITS ---
Exam(s) XR PAIN CLINIC SACRIOILIAC 2V EXAM: XR PAIN CLINIC SACRIOILIAC 2V CLINICAL HISTORY: Dx: Sacroiliac Joint Dysfunction. TECHNIQUE: Fluoroscopy was provided for the referring physician for guidance with performing pain cl inic injection procedure. COMPARISON: No exams were available for comparison FINDINGS: Please see procedure note for details. Fluoro time: 33.2 seconds RADIATION DOSE DELIVERED: Ka,r=6.63 mGy
[2022-12-18 12:28] VITALS: BP 152/87; PULSE 71; RESP 16; O2SAT 100
--- NOTE | 2022-12-18 12:28 | PDOC.PAIN_ITS ---
Date of service: 12/18/22 Time of Service: 12:28 Pain Clinic Procedure Note Procedure Note Procedure Note: INTRA-ARTICULAR SI JOINT INJECTION Nery Plunkett has been referred to the Pain Management Center for intra- articular SI joint injection. COMMENTS: She last had this procedure on 04/16/22 and had 80% relief for >4 months. Dx: Sacroiliac joint dysfunction Pre-procedure pain VAS was 6/10 Patient was interviewed and the medical record reviewed. There were no medical, pharmacologic, radiographic or other structural contraindications to attempting fluoroscopically guided intra-articular SI joint injection. Risks and expected side effects as well as potential benefit of the procedure were reviewed and voiced concerns addressed. The printed consent form was signed and witnessed. Standard time-out procedure was performed. Patient was placed in the prone position on the fluoroscopy table and automated blood pressure cuff and pulse oximeter applied. The skin entry point for approaching the left SI joint was identified under the most advantageous fluoroscopic view and marked. Following thorough Chlorhexadine preparation of the skin and draping and 1% lidocaine infiltration of the skin entry point and s ubcutaneous tissues, a 22 gauge 3.5 spinal needle was placed under fluoroscopic guidance into the left SI joint was identified under the most advantageous fluoroscopic view and marked. Intra-articular placement was confirmed by a clear arthrogram resulting from the injection of 0.25ml Omnipaque 240. I next injected 40mg Depomedrol (40 mg/cc) were injected intra-articularily with an initial reproduction of a significant component of the usual pain. Vital signs were stable throughout the procedure and were as recorded in the docflowsheet by the nursing staff. If given, dosages of intravenous drugs for anxiolysis and analgesia were documented in MAR. Follow up plans and appointments were discussed with the patient. Post procedure instruction was given as documented in nursing documentation and having met discharge criteria, and was discharged from the Pain Management Center. COMMENTS: Post-procedure pain VAS was 0/10 Ernie Gee DO, MPH [facility]Pain Management [facility] for [facility] CC: Slim Israel
[2022-12-18] MEDS: methylPREDNISolone ACETATE 80 MG/ML VIAL IJ (12:46)
[2022-12-18] MEDS: Omnipaque 240 MG/ML 50 ML BTL IJ (12:46)
== END 2022-12-18 10:54 | disposition home or self-care (01) ==
LOC: PC 10:53
PROVIDERS: PCP Internal Medicine; Visit Provider Preventive Medicine Occupational Medicine
DX: M46.1 Sacroiliitis, not elsewhere classified (principal); M54.50 Low back pain, unspecified
CPT/HCPCS: 27096; 72200; J1040; Q9967

== ENCOUNTER 2023-01-28 12:30 | Outpatient (CLI) | payer OTHER, SELFPAY ==
--- NOTE | 2023-01-28 06:00 | DI.RAD_ITS ---
Exam(s) XR PAIN CLINIC LUMBAR SP 2V EXAM: XR PAIN CLINIC LUMBAR SP 2V CLINICAL HISTORY: Dx: Spondylosis. TECHNIQUE: Fluoroscopy was provided for the referring physician for guidance with performing pain cl inic injection procedure. COMPARISON: No exams were available for comparison FINDINGS: Please see procedure note for details. Fluoro time: 34.9 seconds RADIATION DOSE DELIVERED: adela Lazo=8.43 mGy
[2023-01-28 13:18] VITALS: BP 130/88; PULSE 77; RESP 20; TEMP 36.6; O2SAT 95
--- NOTE | 2023-01-28 13:51 | PDOC.PAIN ---
Date of service: 01/28/23 Time of Service: 13:51 Pain Managment Procedure Note Procedure Note Procedure Note: INTRA-ARTICULAR FACET JOINT INJECTION Nery Plunkett has been referred to the Pain Management Center for a lumbar intra-articular lumbar facet joint injection. COMMENTS: I previously evaluated her in the office. I recommended a diagnostic intra-articular facet joint injections to see if this type of procedure can give her months of relief. 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 Dx: Lumbosacral spondylosis without myelopathy Pre-procedure pain VAS was 6/10. Patient was interviewed and the medical record reviewed. There were no medical, pharmacologic, radiographic or other structural contraindications to attempting fluoroscopically guided intra-articular lumbar facet joint injection. Risks and expected side effects as well as potential benefit of the procedure were reviewed and voiced concerns addressed. The printed consent form was signed and witnessed. Standard time-out procedure was performed. Patient was placed in the prone position on the fluoroscopy table and automated blood pressure cuff and pulse oximeter applied. The skin entry point for approaching the right facet joints at L4-L5 and L5-S1 was identified under the most advantageous fluoroscopic view and marked. Following thorough Chlorhexadine preparation of the skin and draping and 1% lidocaine infiltration of the skin entry point and subcutaneous tissues, a 22 gauge spinal needle was placed under fluoroscopic guidance into right L4-L5 and L5-S1 facet joints. Intra-articular placement was confirmed by a clear arthrogram resulting from the injection of 0.25ml Omnipaque 240. 1/2 cc of Depomedrol (80 mg/cc) was injected intra-articularily with an initial reproduction of a significant component of the usual pain. This was followed by 1/2 cc of 1% Lidocaine. The needles were the removed without difficulty. Vital signs were stable throughout the procedure and were as recorded in the docflowsheet by the nursing staff. If given, dosages of intravenous drugs for anxiolysis and analgesia were documented in MAR. Follow up plans and appointments were discussed. Post procedure instruction was given as documented in nursing documentation and having met discharge criteria,was discharged from the Pain Management Center. COMMENTS: Post-procedure pain VAS was 6/10. Ernie Gee DO, MPH [facility]-Pain Management [facility] for [facility] CC: Slim Israel
[2023-01-28] MEDS: methylPREDNISolone ACETATE 80 MG/ML VIAL IJ (13:52)
[2023-01-28] MEDS: Omnipaque 240 MG/ML 50 ML BTL IJ (13:52)
[2023-01-28 13:55] VITALS: BP 140/83; PULSE 73; RESP 15; O2SAT 98
== END 2023-01-28 12:31 | disposition home or self-care (01) ==
LOC: PC 12:30
PROVIDERS: PCP Internal Medicine; Visit Provider Preventive Medicine Occupational Medicine
DX: M47.817 Spondylosis without myelopathy or radiculopathy, lumbosacral region (principal); M54.50 Low back pain, unspecified
CPT/HCPCS: 64493; 64494; 72100; J1040; Q9967

== ENCOUNTER → 2023-05-26 15:21 | Outpatient (CLI) | payer OTHER, SELFPAY ==
--- NOTE | 2023-05-26 11:00 | DI.RAD_ITS ---
Exam(s) XR FOOT RT COMPLETE EXAM: XR FOOT RT COMPLETE CLINICAL HISTORY: PAIN IN FOOT-M79.673-COMPARISON XRAY. TECHNIQUE: 2D digital imaging was performed of the right foot. Three images were obtained. AP, obl ique and lateral views were obtained. COMPARISON: There are no priors for comparison. FINDINGS: BONES: No acute fracture is present. No bony destructive lesion is seen. There is an enthesophyte at the posterior patella. There has been a prior resection of the proximal half of the proximal phalanx of the great toe. JOINTS: No dislocation present. There are degenerative changes seen in the foot particularly at the 1 st metatarsophalangeal joint. SOFT TISSUE: Normal. IMPRESSION: Mild degenerative changes of the foot. DATA REPOSITORY: RADIATION DOSE DELIVERED:
--- NOTE | 2023-05-26 11:00 | DI.RAD_ITS ---
Exam(s) XR FOOT LT COMPLETE EXAM: XR FOOT LT COMPLETE CLINICAL HISTORY: PAIN IN FOOT-M79.673-PLANTAR FASCIAL FIBROMATOSIS, M72.2. TECHNIQUE: 2D digital imaging was performed of the left foot. Three images were obtained. AP, obli que and lateral views were obtained. COMPARISON: There are no priors for comparison. FINDINGS: BONES: No acute fracture is present. No bony destructive lesion is seen. There is a plantar calcaneal spur. There is an enthesophyte at the posterior calcaneus. There is splaying of the 2nd and 3rd to es. No soft tissue calcification or bony abnormality is identified. JOINTS: No dislocation present. Degenerative changes are seen at the 1st metatarsophalangeal joint ch aracterized by joint space narrowing and osteophytes. SOFT TISSUE: Normal. IMPRESSION: Degenerative changes of the left foot. DATA REPOSITORY: RADIATION DOSE DELIVERED:
== END ==
PROVIDERS: PCP Internal Medicine; Visit Provider Podiatrist
DX: M19.072 Primary osteoarthritis, left ankle and foot (principal); M72.2 Plantar fascial fibromatosis; M19.071 Primary osteoarthritis, right ankle and foot
CPT/HCPCS: 73630

== ENCOUNTER → 2023-07-30 01:12 | Outpatient (CLI) | payer OTHER, SELFPAY ==
--- NOTE | 2023-07-30 13:40 | DI.MRI_ITS ---
Exam(s) MR LOWER JOINT LT WO EXAM: MR LOWER JOINT LT WO CLINICAL HISTORY: PAIN LT FOOT, M79.672, ? STRESS FRACTURE, M84.375A PLANTAR FASCITIS, M72.2 TECHNIQUE: Multiplanar multisequence MRI was performed without intravenous contrast. COMPARISON: CR XR FOOT LT COMPLETE from 05/26/2023 FINDINGS: SKIN: No evidence of ulcer nor abnormal subcutaneous tract. BONES/JOINTS: There is a small tibiotalar joint effusion. There is some bone edema/contusion signal in the distal medial talus just proximal to the talonavicular joint and there is a small talonavicula r joint effusion. No ganglion cyst. There is no intraosseous signal abnormality in the immediately subjacent sesamoid tack limb talus of the calcaneus. There is an area of focal signal abnormality in the medial aspect of the talar dome which has the renetta earance of a degenerative subarticular cyst. The ankle mortise is maintained. There is no evidence o f para-articular ganglion.There is no evidence of obvious osseous tarsal coalition. LIGAMENTS: The anterior and posterior tibiofibular ligaments are intact. Calcaneofibular ligament ap pears lax. The anterior and posterior talofibular ligaments are intact. The deltoid ligament is int act. SINUS TARSI: There is no loss of the normal fat signal in this space. Interosseous ligament is intac t. There is no evidence of sinus tarsi ganglion cyst. ANTEROLATERAL GUTTER:There is no abnormal signal/abnormal tissue in this space. MUSCULOTENDINOUS STRUCTURES: Achilles tendon: Unremarkable. No evidence of tear nor tendinitis/tendinosis. Plantar fascia: There is thickening and abnormal signal in the plantar fascia consistent with signifi cant plantar fasciitis. There is a small-moderate size inferior calcaneal spur at this level which e xhibits some bone edema. The plantar fascia at this level is thickened to 8 mm, normal being less th an 6 mm. There is no nodularity more distal in the plantar fascia. There is no fluid collection in the subcutaneous heel foot pad. Anterior Extensor tendons: Unremarkable. Medial Tendons: Posterior Tibialis: Mild tenosynovitis. No tear. Flexor Digitorum longus: Mild tenosynovitis. No tear. Flexor Hallicus longus: Unremarkable. No tear or tenosynovitis evident. Lateral Tendons: Peroneus longus: Mild proximal tenosynovitis. No tear. Peroneus brevis:Unremarkable. No tear nor tenosynovitis evident. SOFT TISSUES: Unremarkable. OTHER FINDINGS: None. IMPRESSION: 1. Multilevel findings as described above. There is thickening and abnormal signal in the plantar fa scia subjacent to the calcaneus consistent with significant plantar fasciitis. There is some intrasu bstance tearing. There is also some mild bone edema in the adjacent small-moderate size inferior ella caneal spur. Achilles tendon appears unremarkable. 2. Small degenerative subarticular cyst noted in the medial aspect of the talar dome. Subarticular b one edema is seen more distally in the medial talus. No abnormal intraosseous signal noted within th e adjacent navicular tuberosity. No other intraosseous signal seen in the bones of the midfoot nor i n the visualized metatarsal bases. 3. There is tenosynovitis noted in the medial and lateral tendons as described above but no ever tend on tears nor displacement. There is no tenosynovitis evident in the extensor tendons. 4. Other findings as above. DATA REPOSITORY:
== END ==
PROVIDERS: PCP Family Medicine; Visit Provider Family Medicine
DX: M72.2 Plantar fascial fibromatosis (principal); M65.872 Other synovitis and tenosynovitis, left ankle and foot
CPT/HCPCS: 73721

== ENCOUNTER 2024-02-03 15:05 | Outpatient (CLI) | payer OTHER, SELFPAY ==
--- NOTE | 2024-02-03 06:00 | DI.RAD_ITS ---
Exam(s) XR PAIN CLINIC SACRIOILIAC 2V EXAM: XR PAIN CLINIC SACRIOILIAC 2V CLINICAL HISTORY: Dx: Sacroiliac Joint Injection TECHNIQUE: 2D and realtime digital imaging was performed. Radiologist not present. CONTRAST MATERIAL: None. COMPARISON: No exams were available for comparison FINDINGS: Fluoroscopy was provided for pain management therapy. Sacroiliac joint injection Please refer to procedure report or details. Radiation Exposure Index: Ka,r=3.48 mGy IMPRESSION: As above. RADIATION DOSE DELIVERED:
[2024-02-03 15:13] VITALS: BP 122/76; PULSE 86; RESP 20; TEMP 36.7; O2SAT 96
--- NOTE | 2024-02-03 15:57 | PDOC.PAIN ---
Date of service: 02/03/24 Time of Service: 15:57 Pain Managment Procedure Note Procedure Note Procedure Note: PROCEDURE NOTE LEFT INTRA-ARTICULAR SACROILIAC JOINT INJECTION Date of Service: February 03, 2024 Patient: Nery Plunkett Provider: Ernie Gee DO, MPH COMMENTS: I previously evaluated the patient in the office and their symptoms in relation to the sacroiliac joint pain have remained the same. She had >5 months of relief with her last left sacroiliac joint injection. Pre-operative diagnosis: Sacroiliac joint dysfunction Post-operative diagnosis: Same Pre-procedure pain: VAS= 7/10 Nery Plunkett has been referred to [facility] for a Left intra-articular Sacroiliac joint injection. Nery was interviewed and the medical record reviewed. There were no medical, pharmacologic, radiographic or other structural contraindications to attempting a fluoroscopically-guided, contrast-enhanced, intra-articular Sacroiliac joint injection. The risks, benefits, and potential side effects of this procedure were reviewed with the patient. Questions and concerns were addressed. After it was clear that Nery was fully informed about the procedure, the printed consent form was signed by the patient and myself. Nery was placed in the prone position on the fluoroscopy table and an automated blood pressure cuff, 3 lead EKG, and pulse oximeter were applied. The skin entry point for approaching the Left sacroiliac joint was identified under the most advantageous fluoroscopic view and marked. Following thorough Chlorhexadine preparation of the skin and draping with sterile surgical drapes, 2 mls of 1% lidocaine was infiltrated into the skin at the entry point and the surrounding subcutaneous tissues. Next, a 3.5 22G spinal needle was placed under fluoroscopic guidance into the Left sacroiliac joint. Intra-articular placement was confirmed by a clear arthrogram resulting from the injection of 0.25ml of Omnipaque-240. Next, 1 ml of Depo- Medrol 80 mg/ml was injected intra-articularly with an initial reproduction of a significant component of the usual pain. This was followed with 1 ml of 1% Lidocaine. The needle was then removed without difficulty. (49 ml of Omnipaque-240 was wasted). Nery's vital signs were stable throughout the procedure and were as recorded in nursing records. Follow up plans and appointments were discussed with Nery. Post procedure instructions were given as documented in nursing records. Having met discharge criteria, N[facility] was [facility] from the [facility] COMMENTS: Post-procedure pain: VAS= 5/10. If the patient receives at least 50% improvement in pain and/or function for at least 3 months, this procedure can be repeated if needed. I personally performed this entire procedure. ERNIE GEE DO, MPH ABPMR-subspecialty board certification in Pain Medicine [facility]
[2024-02-03 16:12] VITALS: PULSE 76; RESP 12; O2SAT 96
[2024-02-03 16:20] VITALS: PULSE 77; RESP 11; O2SAT 96
[2024-02-03] MEDS: methylPREDNISolone ACETATE 80 MG/ML VIAL IJ (16:20)
[2024-02-03 16:21] VITALS: BP 155/100; PULSE 79; O2SAT 95
[2024-02-03] MEDS: Omnipaque 240 MG/ML 50 ML BTL IJ (16:21)
[2024-02-03 16:24] VITALS: BP 145/107; PULSE 81
[2024-02-03 16:26] VITALS: BP 153/88; PULSE 82; RESP 14; O2SAT 96
[2024-02-03] MEDS: Nerve Block Tray 1 EACH MC (16:33)
== END 2024-02-03 15:06 | disposition home or self-care (01) ==
LOC: PC 15:05
PROVIDERS: PCP Family Medicine; Visit Provider Preventive Medicine Occupational Medicine
DX: M54.50 Low back pain, unspecified (principal); M46.1 Sacroiliitis, not elsewhere classified
CPT/HCPCS: 64493; 64494; 72200; J1010; Q9967

== ENCOUNTER 2024-10-05 08:58 | Outpatient (CLI) | payer MEDICARE, SELFPAY ==
[2024-10-05 09:31] VITALS: BP 126/85; PULSE 81; RESP 20; TEMP 36.7; O2SAT 96
[2024-10-05 09:46] VITALS: PULSE 86; RESP 23; O2SAT 96
[2024-10-05 09:48] VITALS: BP 150/94; PULSE 74; PULSE 75; RESP 14; O2SAT 95
[2024-10-05 09:50] VITALS: PULSE 71; RESP 12; O2SAT 95
[2024-10-05 09:57] VITALS: BP 152/92; PULSE 72
--- NOTE | 2024-10-05 10:00 | DI.RAD_ITS ---
Exam(s) XR PAIN CLINIC SACRIOILIAC 2V EXAM: XR PAIN CLINIC SACRIOILIAC 2V CLINICAL HISTORY: DX: Sacroiliac Dysfunction. TECHNIQUE: Fluoroscopy was provided for the referring physician for guidance with performing pain cl inic injection procedure. COMPARISON: No exams were available for comparison FINDINGS: Please see procedure note for details. Fluoro time: 25.6 seconds RADIATION DOSE DELIVERED: Ka,r=6.85 mGy
[2024-10-05] MEDS: Omnipaque 240 MG/ML 50 ML BTL IJ (10:02)
[2024-10-05] MEDS: methylPREDNISolone ACETATE 80 MG/ML VIAL IJ (10:02)
[2024-10-05] MEDS: Nerve Block Tray 1 EACH MC (10:02)
--- NOTE | 2024-10-05 11:09 | PDOC.PAIN ---
Date of service: 10/05/24 Time of Service: 11:09 Pain Managment Procedure Note Procedure Note Procedure Note: PROCEDURE NOTE LEFT INTRA-ARTICULAR SACROILIAC JOINT INJECTION Date of Service: October 05, 2024 Patient: Nery Plunkett Provider: Ernie Gee DO, MPH COMMENTS: I previously evaluated the patient in the office and their symptoms in relation to the sacroiliac joint pain have remained the same. Pre-operative diagnosis: Sacroiliac joint dysfunction ICD-10 M53.3 Post-operative diagnosis: Same Pre-procedure pain: VAS= 6/10 Nery Plunkett has been referred to our [facility] for a Left intra-articular Sacroiliac joint injection. Nery was interviewed and the medical record reviewed. There were no medical, pharmacologic, radiographic or other structural contraindications to attempting a fluoroscopically-guided, contrast-enhanced, intra-articular Sacroiliac joint injection. The risks, benefits, and potential side effects of this procedure were reviewed with the patient. Questions and concerns were addressed. After it was clear that Nery was fully informed about the procedure, the printed consent form was signed by the patient and myself. Nery was placed in the prone position on the fluoroscopy table and an automated blood pressure cuff, 3 lead EKG, and pulse oximeter were applied. The skin entry point for approaching the Left sacroiliac joint was identified under the most advantageous fluoroscopic view and marked. Following thorough Chlorhexadine preparation of the skin and draping with sterile surgical drapes, 2 mls of 1% lidocaine was infiltrated into the skin at the entry point and the surrounding subcutaneous tissues. Next, a 3.5 22G spinal needle was placed under fluoroscopic guidance into the Left sacroiliac joint. Intra-articular placement was confirmed by a clear arthrogram resulting from the injection of 0.25ml of Omnipaque-240. Next, 1 ml of Depo- Medrol 80 mg/ml was injected intra-articularly with an initial reproduction of a significant component of the usual pain. This was followed with 1 ml of 1% Lidocaine. The needle was then removed without difficulty. (49 ml of Omnipaque-240 was wasted). Nery's vital signs were stable throughout the procedure and were as recorded in nursing records. Follow up plans and appointments were discussed with Nery. Post procedure instructions were given as documented in nursing records. Having met discharge criteria, Nery was [facility] from the [facility]. COMMENTS: Post-procedure pain: VAS= 6/10. If the patient receives at least 50% improvement in pain and/or function for at least 3 months, this procedure can be repeated if needed. I personally performed this entire procedure. ERNIE GEE DO, MPH ABPMR-subspecialty board certification in Pain Medicine [facility] [facility]
== END 2024-10-05 08:59 | disposition home or self-care (01) ==
LOC: PC 08:59
PROVIDERS: PCP Family Medicine; Visit Provider Preventive Medicine Occupational Medicine
DX: M54.50 Low back pain, unspecified (principal); M53.3 Sacrococcygeal disorders, not elsewhere classified
CPT/HCPCS: 27096; 72200; J1010; Q9967